=== PATIENT | male | born 1960 | race African-American/Black ===

== ENCOUNTER 2023-01-18 16:48 | Emergency (ER) | payer MEDICAID, OTHER ==
[~2023-01-18] VITALS: Ht 175.3 cm; Wt 75.0 kg
[2023-01-18 17:38] LABS: HEMATOCRIT. 45.8 % (42.0-52.0); HEMOGLOBIN. 15.1 g/dL (14.0-18.0); MEAN CORPUSCULAR HEMOGLOBIN 29.6 pg (28.0-32.0); MEAN CORPUSCULAR VOLUME 89.6 fL (80.0-94.0); MEAN PLATELET VOLUME 8.6 fl (7.4-10.4); PLATELET 217 x1000/uL (130-400); RED BLOOD CELL COUNT 5.12 mill/uL (4.7-6.1); RED CELL DISTRIBUTION WIDTH 15.4 % (11.6-14.6)
[2023-01-18 17:48] LABS: CHLORIDE 107 mEq/L (98-107)
[2023-01-18 19:36] LABS: PLATELET ESTIMATE NORMAL
[2023-01-18 20:00] VITALS: BP 159/79
== END 2023-01-19 03:09 | disposition home or self-care (01) ==
LOC: ER 17:25
DX: B34.9 Viral infection, unspecified (principal); R51.9 Headache, unspecified; Z20.822 Contact with and (suspected) exposure to COVID-19
CPT/HCPCS: 36415; 70450; 71045; 80053; 85025; 87426; 87804; 99285; C9803

== ENCOUNTER 2025-04-01 02:14 | Emergency (ER) | payer MEDICAID, OTHER ==
[~2025-04-01] VITALS: Ht 172.7 cm; Wt 93.0 kg
[2025-04-01 02:17] VITALS: TEMP 36.9; O2SAT 99
[2025-04-01] MEDS: ACETAMINOPHEN WITH CODEINE 300/30MG TABLET PO ONE (02:58)
[2025-04-01] MEDS: TETANUS, DIPHTHERIA, PERTUSSIS VAC/PF 0.5ML (>10YR OLD) IM ONE (02:59)
[2025-04-01] MEDS ORDERED: CEPH500C2 MT (03:59)
[2025-04-01] MEDS: BACITRACIN ZINC OINT UDPKT TOP ONE (04:27)
[2025-04-01] MEDS: LIDOCAINE HCL/EPINEPHRINE 1%-EPI 1:100,000 20ML VIAL INFIL ONE (04:27)
[2025-04-01 04:28] VITALS: BP 182/87; PULSE 84; RESP 20; O2SAT 98
== END 2025-04-01 05:06 | disposition home or self-care (01) ==
LOC: ER 02:14
DX: S41.112A Laceration without foreign body of left upper arm, initial encounter (principal); I10 Essential (primary) hypertension; X58.XXXA Exposure to other specified factors, initial encounter; Y93.39 Activity, other involving climbing, rappelling and jumping off; Y92.89 Other specified places as the place of occurrence of the external cause; Y99.8 Other external cause status
CPT/HCPCS: 90715; 12001; 90471; 99283; J2004; Z7610 ×2